=== PATIENT | male | born 1960 | race Caucasian/White ===

== ENCOUNTER → 2021-06-18 | Outpatient (CLI) | payer OTHER ==
[~2021-06-18] MED LIST: ASA81BEC PO; BENICAR40 MG PO; CARVEDILOL12.5 MG PO; CHLORTHALIDONE25 MG PO; COZAAR 25 MG TA25 M1 PO; FERREX 150 PLU1 EAC1 PO; KLOR-CON M2020 MEQ PO; LIPITOR10 MG PO; LOSARTAN POTASS50 MG PO; NORVASC5 MG PO; PACERONE 200 M200 M1 PO; TOPROL XL25 MG PO
[2021-06-18 13:56] LABS: ABSOLUTE NEUTROPHILS 7.8 thou/uL (1.4-8.2); BASOPHILS 0.9 % (0.0-2.0); EOSINOPHILS 1.3 % (0.0-3.0); HEMATOCRIT 44.3 % (42.0-52.0); HEMOGLOBIN 14.6 gm/dL (14.0-18.0); LYMPHOCYTES 17.9 % (24.0-44.0); MCH 28.5 pg (26.0-34.0); MCV 86.4 fL (80.0-100.0); MONOCYTES 5.1 % (1.0-8.0); PLATELET COUNT 269 thou/uL (150-400); POLYS 74.8 % (36.0-66.0); RBC 5.13 mil/uL (4.50-6.00); RDW 14.4 % (10.5-14.5); WBC 10.5 thou/uL (4.0-11.0)
[2021-06-18 14:06] LABS: ALBUMIN 3.8 g/dL (3.4-5.0); CREATININE 1.6 mg/dL (0.7-1.3); POTASSIUM 3.6 mmol/L (3.5-5.1); TOTAL BILIRUBIN 0.6 mg/dL (0.2-1.0); TOTAL PROTEIN 6.6 g/dL (6.4-8.2)
[2021-06-18 14:07] LABS: APTT 28.5 Seconds (24.5-32.8); INR 0.99; PROTIME 10.8 Seconds (10.5-12.1)
[2021-06-19 02:06] LABS: GLYCOHEMOGLOBIN (HGB A1C) 5.9 % (4.8-5.6)
--- NOTE | 2021-06-19 07:17 | EKG ---
[address] [place] [address] ELECTROCARDIOGRAM REPORT Name: MIMI SWEENEY Room #: [facility]#: [id number] Admission: 06/18/21 Attend Phys: Wood Henderson MD Discharge: Date of : 58 Report #: [id number] [facility] Test Date: 2021-06-18 Test Time: 13:32:52 Pat Name: MIMI OROZCOCATRACHOTANIKA Department: Room: Gender: Adventure Challenge Instructor: Meghan BERNAL : 1960 Requested By: Wood Henderson Order Number: [id number] MD: Topher Guillen Measurements Intervals [place] Rate: 52 P: 3 CA: 178 QRS: -66 QRSD: 178 T: -2 QT: 532 QTc: 495 Interpretive Statements Sinus rhythm Atrial premature complex RBBB and LAFB No previous ECG available for comparison Electronically Signed On 06-19-2021 7:16:55 [employer] TRAWL[employer] by Topher Guillen [email or web address] <ELECTRONICALLY SIGNED> By: Topher Guillen MD, [facility] 06/19/21 0716 1332 1332 Topher Guillen MD, FACC /EPI
== END ==
LOC: PAC 12:22
PROVIDERS: ATTEND Surgery Vascular Surgery
DX: Z01.812 Encounter for preprocedural laboratory examination (principal); I25.10 Atherosclerotic heart disease of native coronary artery without angina pectoris; Z95.1 Presence of aortocoronary bypass graft; Z20.822 Contact with and (suspected) exposure to COVID-19

== ENCOUNTER 2021-06-22 06:04 | Inpatient (IN) | payer OTHER ==
[2021-06-22] VITALS (12 sets, daily range): BP systolic 101–167; BP diastolic 62–83
[~2021-06-22] VITALS: Ht 180.3 cm; Wt 103.6 kg
[~2021-06-22 06:04] MED LIST changes: -BENICAR40 MG PO; -CARVEDILOL12.5 MG PO; -CHLORTHALIDONE25 MG PO; -FERREX 150 PLU1 EAC1 PO; -PACERONE 200 M200 M1 PO
[2021-06-22 13:38] LABS: HEMATOCRIT 31.7 % (42.0-52.0); HEMOGLOBIN 10.6 gm/dL (14.0-18.0); MCHC 33.4 g/dL (28.0-37.0); RBC 3.64 mil/uL (4.50-6.00); RDW 14.3 % (10.5-14.5); WBC 18.5 thou/uL (4.0-11.0)
[2021-06-22 14:01] LABS: INR 1.21
[2021-06-22 14:12] LABS: POC BE 0 mmol/L (-2.0 to +3.0); POC CA IONIZED 4.5 mg/dL (4.5-5.3); POC GLUCOSE 150 mg/dL (70-99); POC HCO3 24.9 mmol/L (22.0-26.0); POC HEMOGLOBIN 11.2 g/dL (14.0-18.0); POC POTASSIUM 3.8 mmol/L (3.5-5.1); POC SODIUM 140 mmol/L (136-145); POC pH 7.382 (7.360-7.450)
[2021-06-22 14:12] LABS: POC BE 1 mmol/L (-2.0 to +3.0); POC CA IONIZED 4.8 mg/dL (4.5-5.3); POC GLUCOSE 118 mg/dL (70-99); POC HCO3 25.6 mmol/L (22.0-26.0); POC HEMOGLOBIN 13.9 g/dL (14.0-18.0); POC POTASSIUM 3.9 mmol/L (3.5-5.1); POC SODIUM 139 mmol/L (136-145); POC pCO2 39.3 mmHg (35.0-45.0); POC pH 7.422 (7.360-7.450)
[2021-06-22 14:12] LABS: POC BE -1 mmol/L (-2.0 to +3.0); POC CA IONIZED 4.4 mg/dL (4.5-5.3); POC GLUCOSE 141 mg/dL (70-99); POC HCO3 24.3 mmol/L (22.0-26.0); POC HEMOGLOBIN 11.2 g/dL (14.0-18.0); POC POTASSIUM 3.6 mmol/L (3.5-5.1); POC SODIUM 139 mmol/L (136-145); POC pCO2 40.3 mmHg (35.0-45.0); POC pH 7.389 (7.360-7.450)
[2021-06-22 14:12] LABS: POC BE 0 mmol/L (-2.0 to +3.0); POC CA IONIZED 4.6 mg/dL (4.5-5.3); POC GLUCOSE 119 mg/dL (70-99); POC HEMOGLOBIN 13.6 g/dL (14.0-18.0); POC POTASSIUM 3.8 mmol/L (3.5-5.1); POC SODIUM 139 mmol/L (136-145); POC pCO2 41.5 mmHg (35.0-45.0); POC pH 7.388 (7.360-7.450)
[2021-06-22 14:12] LABS: POC BE -2 mmol/L (-2.0 to +3.0); POC CA IONIZED 4.4 mg/dL (4.5-5.3); POC GLUCOSE 145 mg/dL (70-99); POC HCO3 23.4 mmol/L (22.0-26.0); POC HEMOGLOBIN 11.2 g/dL (14.0-18.0); POC POTASSIUM 3.9 mmol/L (3.5-5.1); POC SODIUM 139 mmol/L (136-145); POC pH 7.387 (7.360-7.450)
[2021-06-22 14:12] LABS: POC BE -1 mmol/L (-2.0 to +3.0); POC CA IONIZED 4.3 mg/dL (4.5-5.3); POC GLUCOSE 125 mg/dL (70-99); POC HCO3 24.1 mmol/L (22.0-26.0); POC HEMOGLOBIN 11.2 g/dL (14.0-18.0); POC POTASSIUM 3.9 mmol/L (3.5-5.1); POC SODIUM 138 mmol/L (136-145); POC pCO2 38.6 mmHg (35.0-45.0); POC pH 7.404 (7.360-7.450)
[2021-06-22 14:13] LABS: POC BE 1 mmol/L (-2.0 to +3.0); POC CA IONIZED 4.5 mg/dL (4.5-5.3); POC GLUCOSE 129 mg/dL (70-99); POC HCO3 25.9 mmol/L (22.0-26.0); POC HEMOGLOBIN 10.5 g/dL (14.0-18.0); POC POTASSIUM 3.8 mmol/L (3.5-5.1); POC SODIUM 140 mmol/L (136-145); POC pCO2 42.7 mmHg (35.0-45.0); POC pH 7.391 (7.360-7.450)
[2021-06-22 14:13] LABS: POC BE -1 mmol/L (-2.0 to +3.0); POC CA IONIZED 4.9 mg/dL (4.5-5.3); POC GLUCOSE 114 mg/dL (70-99); POC HCO3 23.9 mmol/L (22.0-26.0); POC HEMOGLOBIN 10.9 g/dL (14.0-18.0); POC POTASSIUM 3.5 mmol/L (3.5-5.1); POC SODIUM 140 mmol/L (136-145); POC pCO2 40.8 mmHg (35.0-45.0); POC pH 7.375 (7.360-7.450)
[2021-06-22 14:13] LABS: POC BE -3 mmol/L (-2.0 to +3.0); POC CA IONIZED 4.7 mg/dL (4.5-5.3); POC GLUCOSE 130 mg/dL (70-99); POC HCO3 22.6 mmol/L (22.0-26.0); POC HEMOGLOBIN 11.6 g/dL (14.0-18.0); POC POTASSIUM 3.9 mmol/L (3.5-5.1); POC SODIUM 140 mmol/L (136-145); POC pCO2 40.5 mmHg (35.0-45.0); POC pH 7.354 (7.360-7.450)
[2021-06-22 14:19] LABS: PROTIME 13.1 Seconds (10.5-12.1)
[2021-06-22 15:00] LABS: BE(vivo) -6.5 mmol/L (-2 to +3); HCO3 18.9 mmol/L (22.0-26.0); PCO2 37.2 mmHg (35.0-45.0); PO2 97.5 mmHg (80.0-100.0)
[2021-06-22 15:01] LABS: pH 7.323 (7.360-7.450)
--- NOTE | 2021-06-22 15:02 | NUR ---
CALCULATED PT'S SVR: ((MAP-CVP)/CO)X80 : 1090 SVR
[2021-06-22 15:05] LABS: HEMATOCRIT 36.8 % (42.0-52.0); HEMOGLOBIN 12.1 gm/dL (14.0-18.0); MCH 28.7 pg (26.0-34.0); RBC 4.22 mil/uL (4.50-6.00); RDW 14.6 % (10.5-14.5); WBC 19.6 thou/uL (4.0-11.0)
[2021-06-22 15:19] LABS: CALCIUM 7.7 mg/dL (8.5-10.1); CREATININE 1.5 mg/dL (0.7-1.3); POTASSIUM 3.9 mmol/L (3.5-5.1)
[2021-06-22 15:20] LABS: MAGNESIUM 2.3 mg/dL (1.8-2.4)
[2021-06-22 15:27] LABS: INR 1.13; PROTIME 12.2 Seconds (10.5-12.1)
[2021-06-22 17:43] LABS: BE(vivo) -7.1 mmol/L (-2 to +3); HCO3 18.6 mmol/L (22.0-26.0); PCO2 38.2 mmHg (35.0-45.0); PO2 103.4 mmHg (80.0-100.0); sO2 97.3 % (92.0-98.0)
[2021-06-22 17:44] LABS: pH 7.305 (7.360-7.450)
[2021-06-22 18:59] LABS: CALCIUM 7.8 mg/dL (8.5-10.1); CREATININE 1.7 mg/dL (0.7-1.3); POTASSIUM 4.1 mmol/L (3.5-5.1)
[2021-06-23] VITALS (9 sets, daily range): BP systolic 109–134; BP diastolic 68–76
[2021-06-23 04:52] LABS: CALCIUM 8.2 mg/dL (8.5-10.1); CREATININE 1.5 mg/dL (0.7-1.3); HEMATOCRIT 37.1 % (42.0-52.0); HEMOGLOBIN 12.2 gm/dL (14.0-18.0); MAGNESIUM 2.6 mg/dL (1.8-2.4); MCH 28.9 pg (26.0-34.0); MCV 87.7 fL (80.0-100.0); POTASSIUM 3.8 mmol/L (3.5-5.1); RBC 4.23 mil/uL (4.50-6.00); RDW 14.7 % (10.5-14.5); WBC 16.4 thou/uL (4.0-11.0)
--- NOTE | 2021-06-23 12:12 | O ---
[facility] [place] [address] OPERATIVE REPORT Name: MIMI SWEENEY Room #: 248-P [facility] M.R.#: [id number] Admission: 06/22/21 Attend Phys: Wood Henderson MD Discharge: Date of : 58 Report #: [id number] THIS REPORT FOR: cc: Rosie Molina Ariana A. RNP Forman, John M. MD ~ DATE OF SERVICE: 06/23/2021 PREOPERATIVE DIAGNOSIS: Coronary artery disease. POSTOPERATIVE DIAGNOSIS: Coronary artery disease. OPERATION: Coronary artery bypass x5 including left internal mammary artery to left anterior descending artery, saphenous vein to diagonal and marginal arteries and saphenous vein to posterior descending 1 and posterior descending 2, and endoscopic harvest, left greater saphenous vein. SURGEON: Wood Henderson MD CARBURIZING FURNACE OPERATOR: TRELL Olmos ANESTHESIA: General. INDICATIONS: The patient is a 60-year-old seen for Dr. Chuy Felix. The patient has severe 3-vessel coronary artery disease and reduced ventricular function. The patient presents with progressive shortness of breath and fatigue, not angina specifically. FINDINGS AND TECHNIQUE: After general anesthesia was established, saphenous vein was harvested using an endoscopic approach and prepared for use as a conduit. Exposure was obtained through median sternotomy. Left internal mammary artery was harvested from chest wall. Pericardial well was made. Cannulation sutures were placed. Heparin was given. Aorta was cannulated. Right atrium was cannulated. Cardioplegia needle was positioned in the aortic root. Retrograde cardioplegic catheter was placed in the coronary sinus. Cardiopulmonary bypass was established. The aorta was cross clamped. Antegrade and retrograde cardioplegia were given. Ice was poured into the pericardial well. The heart was stopped. During electromechanical arrest, the distal anastomoses were performed. An end-to-side anastomosis was made between vein and second posterior descending artery. Cold cardioplegia was given. The same segment of vein was sewn in end-to-side fashion to the more proximal posterior descending artery. Cold cardioplegia was given. A separate segment of vein was sewn in end-to-side [facility] [address] [place] [address] OPERATIVE REPORT Name: MIMI SWEENEY Room #: 248-P [facility]#: [id number] Admission: 06/22/21 Attend Phys: Wood Henderson MD Discharge: Date of : 58 Report #: [id number] fashion to the marginal artery. It should be mentioned that I opened the marginal artery in a spot that was suboptimal for bypass. The patient has diffuse coronary disease and it was difficult to find spots for distal anastomosis. I found a better spot to place the bypass to the marginal artery and an end-to-side anastomosis was done to that spot. Cold cardioplegia was given. The vein was then sewn in phok-hi-rdfc fashion to the other spot opened. Inasmuch as this is the same vessel, I do not consider this an extra bypass per se, but a vein patch that may have the added benefit of adding blood flow. Cold cardioplegia was given. The same segment of vein was then sewn in irio-bh-beeg fashion to the largest diagonal artery. Cold cardioplegia was given. Left internal mammary artery was sewn in end-to-side fashion to the left anterior descending artery. The patency of this was checked with the temperature technique and the Doppler. Cold cardioplegia was given. Two proximal anastomoses were performed. When these were complete, warm retrograde cardioplegia was given followed by warm continuous blood through the coronary sinus. When this infusion was complete, the crossclamp was removed. De-airing maneuvers were performed. The anastomoses were inspected and found to be satisfactory. As the patient warmed, nice cardiac activity resumed, chest tubes and pacing wires were placed. A marker was placed around the proximal anastomoses. When the patient was warm, he was weaned from cardiopulmonary bypass. Venous cannula was removed. Protamine was given. The aortic cannula was removed. Flows were measured in the bypass grafts. When hemostasis was satisfactory, chest was irrigated with antibiotic solution and closed in the usual fashion. The patient was taken to the Intensive Care Unit in good condition having tolerated the procedure well. All counts were reported as correct. <ELECTRONICALLY SIGNED> By: Wood Henderson MD 06/23/21 1212 1019 1045 Wood Henderson MD /nt
--- NOTE | 2021-06-23 12:45 | EKG ---
[address] [place] [address] ELECTROCARDIOGRAM REPORT Name: MIMI SWEENEY Room #: 248-P [facility] IN ..#: [id number] Admission: 06/22/21 Attend Phys: Wood Henderson MD Discharge: Date of : 58 Report #: [id number] [facility] Test Date: 2021-06-22 Test Time: 16:14:22 Pat Name: MIMI SWEENEY Department: Room: [facility] Gender: M Fork Operator: DIVYA : 1960 Requested By: Filippo Tatum Order Number: [id number] MD: Umang Flores Measurements Intervals [place] Rate: 67 P: 56 MS: 141 QRS: -56 QRSD: 173 T: 32 QT: 525 QTc: 555 Interpretive Statements Sinus rhythm RBBB and LAFB Compared to ECG 06/18/2021 13:32:52 Atrial premature complex(es) no longer present Electronically Signed On 06-23-2021 12:44:48 FORENSIC ACCOUNTANT by Umang Flores [email or web address] <ELECTRONICALLY SIGNED> By: Umang Flores MD 06/23/21 1244 1614 161 Umang Flores MD /EPI
--- NOTE | 2021-06-23 12:47 | EKG ---
[address] [place] [address] ELECTROCARDIOGRAM REPORT Name: MIMI SWEENEY Room #: 248-[facility] IN .R.#: [id number] Admission: 06/22/21 Attend Phys: Wood Henderson MD Discharge: Date of : 58 Report #: [id number] [facility] Test Date: 2021-06-23 Test Time: 07:44:02 Pat Name: MIMI SWEENEY Department: Room: 248 Gender: M Blanket Winder Helper: RUTHIE : 1960 Requested By: Filippo Tatum Order Number: [id number] MD: Umang Flores Measurements Intervals [place] Rate: 78 P: 22 MI: 142 QRS: -47 QRSD: 174 T: 8 QT: 545 QTc: 621 Interpretive Statements Sinus rhythm RBBB and LAFB Compared to ECG 06/22/2021 16:14:22 No significant changes Electronically Signed On 06-23-2021 12:47:05 MILLWORK ESTIMATOR by Umang Flores [email or web address] <ELECTRONICALLY SIGNED> By: Umang Flores MD 06/23/21 1247 Umang Flores MD /ALYCIA
[2021-06-24] VITALS (13 sets, daily range): BP systolic 131–167; BP diastolic 79–95
--- NOTE | 2021-06-24 06:04 | NUR ---
Pt progressing toward goals. Monitor remains sinus rhythm with BBB. SBP generally 140-163, have not had to restart Cardene. Taking fluids without nausea/vomitting, still has poor appetite. Left plural CT x1 patent to -20 cmH2O, no air leak or crepitus. All dressings remain clean, dry and intact. Pacer wires remain capped. Pain well controlled with Hydrocodone 1 tablet q 4-6 hours prn.
[2021-06-24 06:58] LABS: CALCIUM 8.2 mg/dL (8.5-10.1); CREATININE 1.3 mg/dL (0.7-1.3); POTASSIUM 3.7 mmol/L (3.5-5.1)
[2021-06-24 06:59] LABS: HEMATOCRIT 34.1 % (42.0-52.0); HEMOGLOBIN 11.1 gm/dL (14.0-18.0); MCH 28.7 pg (26.0-34.0); MCHC 32.7 g/dL (28.0-37.0); MCV 87.9 fL (80.0-100.0); RBC 3.88 mil/uL (4.50-6.00); WBC 15.1 thou/uL (4.0-11.0)
[2021-06-25] VITALS (26 sets, daily range): BP systolic 150–187; BP diastolic 81–111
--- NOTE | 2021-06-25 08:57 | NUR ---
Nutrition: pt S/P CABG x 5, POD 3. Received education consult, will followup when out of ICU and closer to D/C to determine education needs.
--- NOTE | 2021-06-25 15:53 | NUR ---
Spoke FASHION PATTERNMAKER in regards to hypertension. Continue to monitor for now. Use prn as needed. See if the furosemide is effective in assisting with lowering blood pressure. Per FASHION PATTERNMAKER communication.
--- NOTE | 2021-06-25 16:02 | NUR ---
INITIAL ASSESSMENT: Received consult for discharge planning. SW reviewed chart and spoke with nursing and attending physician. Pt was admitted from home. Pt is POD#3 CABG x 5. Pt remains in the ICU. Pt has orders to transfer to CCU when a bed is available. PT/OT evals ordered. SW met with pt at bedside. Introduced role of SW. Pt is alert/orientated x 4. Pt reports he lives at home with his . Prior to admission, pt was independent with ADLs. No use of DME. There are 2 steps to enter their home. No steps inside. No hx of services or post-acute placement. Pt's PCP is Dr. Rosie Odonnell in [place]. Pt does not anticipate having any discharge needs. Plan is for pt to discharge home when medically stable. SW is following to assist as needed with discharge planning.
--- NOTE | 2021-06-25 19:00 | NUR ---
Patient progressing towards plan of care as evidencedy by increasing mobility, decreased pain, room air, and all lines out. He feels he needs to have a bowel movement, nurse encouraged activity. Patient did not want to get out of bed for supper tonight, education provided. He expressed his abdomen is not feeling good enough to move. Nurse to continue to monitor patient status.
--- NOTE | 2021-06-25 23:47 | NUR ---
PT'S , VERNA, CALLED HOSPITAL AT APPROXIMATELY 2315 AND NOTIFIED THIS RN THAT HER MOTHER TESTED POSITIVE FOR COVID ON 12 IN THE EVENING. VERNA SAYS SHE HAS BEEN TAKING CARE OF HER MOTHER AND HAS ALSO VISITED MIMI HERE IN THE ICU. SHE STATED THAT SHE DIDN'T ALWAYS HAVE A MASK ON WHILE IN MIMI'S ROOM AND THAT SHE KISSED HIM GOODBYE WHILE SHE WAS HERE. Katie GARCIA NP, NOTIFIED OF CONVERSATION WITH PT'S . PT WILL BE PUT ON ISOLATION AND PCR COVID SWAB WILL BE OBTAIN. WILL CONTINUE TO MONITOR.
[2021-06-26] VITALS (17 sets, daily range): BP systolic 124–170; BP diastolic 88–113
[2021-06-26 02:43] LABS: HEMATOCRIT 40.1 % (42.0-52.0); MCH 28.7 pg (26.0-34.0); MCHC 33.1 g/dL (28.0-37.0); MCV 86.7 fL (80.0-100.0); RBC 4.62 mil/uL (4.50-6.00); RDW 14.5 % (10.5-14.5); WBC 15.2 thou/uL (4.0-11.0)
[2021-06-26 02:49] LABS: CALCIUM 8.7 mg/dL (8.5-10.1)
[2021-06-26 03:00] LABS: HEMOGLOBIN 13.3 gm/dL (14.0-18.0)
--- NOTE | 2021-06-26 11:05 | NUR ---
SW reviewed chart and spoke with nursing and hospitalist. Pt transferred out of ICU to CCU earlier today. Pt is POD#4 CABG x 5. Pt is on room air. Therapy to work with pt today. Received consult stating pt's family was exposed to COVID. Pt had negative COVID PCR test last night. Plan is for pt to discharge home when medically stable. ANGELO is following to assist as needed with discharge planning.
--- NOTE | 2021-06-26 11:10 | NUR ---
PT ARIVED FROM ICU. PT DENIES ANY COMPLAINTS. DOES NOT APPEAR TO BE IN DISTRESS. REPORT RECEIVED FROM PRATEEK.
[2021-06-27 00:21] VITALS: BP 165/96
--- NOTE | 2021-06-27 01:01 | NUR ---
Assumed pt care at 1900, alert and orientedx4, sb/bbb on tele, denies pain or sob, assessments as charted, bradycardia in the 50s, amiodarone held, dr. Henderson made aware, KAUR dressing intact, no drainage, bp elevated in the 160s systolic, prn hydralizine given, no needs at this time, progressing well towards poc, report given to oncoming RN
[2021-06-27 03:32] LABS: HEMATOCRIT 38.7 % (42.0-52.0); HEMOGLOBIN 12.7 gm/dL (14.0-18.0); MCH 28.8 pg (26.0-34.0); MCHC 32.9 g/dL (28.0-37.0); MCV 87.4 fL (80.0-100.0); RBC 4.43 mil/uL (4.50-6.00); RDW 14.2 % (10.5-14.5); WBC 14.1 thou/uL (4.0-11.0)
[2021-06-27 03:50] LABS: CALCIUM 8.4 mg/dL (8.5-10.1); CREATININE 1.1 mg/dL (0.7-1.3); POTASSIUM 3.4 mmol/L (3.5-5.1)
[2021-06-27 04:45] VITALS: BP 158/88
--- NOTE | 2021-06-27 05:03 | NUR ---
PT IS RESTING IN NO ACUTE DISTRESS.A/P CABGX5.KAUR DRESSING INTACT.SB ON MONITOR.NO CONCERNS VOICED AT THIS TIME.
[2021-06-27 08:16] VITALS: BP 153/88
[2021-06-27] MEDS ORDERED: FERREX 150 PLU1 EAC1 PO (10:31)
[2021-06-27] MEDS ORDERED: CHLORTHALIDONE25 MG PO (10:48)
[2021-06-27] MEDS ORDERED: PACERONE 200 M200 M1 PO (10:48)
[2021-06-27] MEDS ORDERED: BENICAR40 MG PO (10:48)
[2021-06-27] MEDS ORDERED: CARVEDILOL12.5 MG PO (10:48)
[2021-06-27 11:40] VITALS: BP 157/97
[2021-06-27 12:29] VITALS: BP 157/97
[2021-06-27 13:30] VITALS: BP 157/97
--- NOTE | 2021-06-27 13:32 | NUR ---
DISCHARGED PATIENT. EXPLAINED AND HIGHLIGHTED UPCOMING APPOINTMENTS TO PATIENT AND SPOUSE. PATIENT STATED HE UNDERSTOOD AND DID NOT HAVE ANY FURTHER QUESTIONS. PATIENT WAS TAKING OFF UNIT VIA WHEEL CHAIR.
== END 2021-06-27 15:48 | disposition home or self-care (01) | DRG 235 ==
LOC: ICU 06:04 → TBA 06:04 → OR 06:40 → EDSTATUS 09:37 → PRE 09:42 → ICU 15:13 → PRE 15:37 → ICU 06-24 07:01 → 2N 06-26 11:00
PROVIDERS: Hospitalist; Nurse Practitioner; Nurse Practitioner Family; Physician Assistant; ADMIT Surgery Vascular Surgery; ATTEND Surgery Vascular Surgery
PROC: 021309W Bypass Coronary Artery, Four or More Arteries from Aorta with Autologous Venous Tissue, Open Approach (ICD-10-PCS; principal; 2021-06-22)
PROC: 06BQ4ZZ Excision of Left Saphenous Vein, Percutaneous Endoscopic Approach (ICD-10-PCS; principal; 2021-06-22)
PROC: 5A1221Z Performance of Cardiac Output, Continuous (ICD-10-PCS; principal; 2021-06-22)
PROC: 02100Z9 Bypass Coronary Artery, One Artery from Left Internal Mammary, Open Approach (ICD-10-PCS; principal; 2021-06-22)
DX: I25.10 Atherosclerotic heart disease of native coronary artery without angina pectoris (principal); N17.0 Acute kidney failure with tubular necrosis; I50.21 Acute systolic (congestive) heart failure; I13.0 Hypertensive heart and chronic kidney disease with heart failure and stage 1 through stage 4 chronic kidney disease, or unspecified chronic kidney disease; I25.5 Ischemic cardiomyopathy; N18.9 Chronic kidney disease, unspecified; R73.9 Hyperglycemia, unspecified; Z20.822 Contact with and (suspected) exposure to COVID-19; D64.9 Anemia, unspecified; E78.5 Hyperlipidemia, unspecified; Z88.8 Allergy status to other drugs, medicaments and biological substances; Z79.82 Long term (current) use of aspirin; Z79.899 Other long term (current) drug therapy
CPT/HCPCS: 10078; 10081; 10203; 47000; 47001; 47002; 47297; 48889; 50249; 50668; 51165; 51301; 52259; 52287; 53327; 53358; 54118; 56455; 56524; 56525; 56526; 56527; 56528; 56531; 56534; 56668; 56719; 56760; 56898; 57093; 57167; 58585; 58856; 58901; 58918; 62110; 62950; 65002; 65003; 65020; 65090; 65120; 65135

== ENCOUNTER → 2021-07-31 | Outpatient (CLI) | payer OTHER ==
[~2021-07-31] MED LIST changes: +BENICAR40 MG PO; +CARVEDILOL12.5 MG PO; +CHLORTHALIDONE25 MG PO; +FERREX 150 PLU1 EAC1 PO; +PACERONE 200 M200 M1 PO
== END ==
LOC: SJCVCIMAG 09:40
PROVIDERS: ATTEND Internal Medicine Cardiovascular Disease
DX: I11.9 Hypertensive heart disease without heart failure (principal); I25.10 Atherosclerotic heart disease of native coronary artery without angina pectoris; Z95.1 Presence of aortocoronary bypass graft